=== PATIENT | male | born 1955 | race Caucasian/White ===

== ENCOUNTER 2017-01-05 14:36 | Outpatient (CLI) | payer OTHER | END 2017-01-05 14:37 | disposition home or self-care (01) | LOC: RAD 14:36 → LAB 14:37 | PROVIDERS: ATTEND Urology | DX: Z12.5 Encounter for screening for malignant neoplasm of prostate (principal) | CPT/HCPCS: 36415; 84153 ==

== ENCOUNTER 2017-12-22 17:19 | Outpatient (CLI) | END 2017-12-22 17:20 | disposition home or self-care (01) | LOC: NONPT 17:19 | PROVIDERS: ATTEND General Practice | DX: R50.9 Fever, unspecified (principal); R05 Cough; J02.9 Acute pharyngitis, unspecified | CPT/HCPCS: 85025; 86710; 87651; 87804 ==

== ENCOUNTER 2017-12-29 15:28 | Outpatient (CLI) ==
--- NOTE | 2017-12-29 16:19 | DI ---
EXAM: Two-view chest. HISTORY: Weakness. COMPARISON: 03/26/2014 FINDINGS: PA and lateral views of the chest. The right-sided chest port has been removed. LUNGS: The lungs are hyperexpanded. There is no lobar consolidation or effusion. The pulmonary inte rstitium is normal. Calcified granulomas and calcified lymph nodes are seen bilaterally. MEDIASTINUM: The heart size and pulmonary vasculature are within normal limits. The aorta is tortu ous and calcified. OSSEOUS STRUCTURES: The osseous structures show mild degenerative changes consistent with age. The so ft tissues are unremarkable. IMPRESSION: 1. No acute pulmonary disease. 2. Hyperexpansion of the chest consistent with chronic obstructive pulmonary disease. 3. Granulomatous change.
== END 2017-12-29 15:29 | disposition home or self-care (01) ==
LOC: RAD 15:28
PROVIDERS: ATTEND General Practice
DX: R50.9 Fever, unspecified (principal); R53.83 Other fatigue; R53.1 Weakness; R05 Cough; Z87.891 Personal history of nicotine dependence
CPT/HCPCS: 36415; 80053; 85025